=== PATIENT | female | born 1965 | race Caucasian/White ===

== ENCOUNTER → 2017-08-05 | Outpatient (CLI) | payer BC ==
--- NOTE | 2017-08-06 11:06 | MM ---
Reason for exam: screening (asymptomatic). Last mammogram was performed 3 years and 5 months ago. History: Family history of breast cancer in cousin at age 40. Took hormonal contraceptives for 2 months beginning at age 19. Physical Findings: A clinical breast exam by your physician is recommended on an annual basis and results should be correlated with mammographic findings. MG Screening Mammo w CAD Bilateral CC and MLO view(s) were taken. Prior study comparison: March 10, 2014, bilateral MG screening mammo w CAD. January 08, 2008, right breast diagnostic digital chayito. There are scattered fibroglandular densities. No significant changes when compared with prior studies. ASSESSMENT: Benign, BI-RAD 2 RECOMMENDATION: Routine screening mammogram of both breasts in 1 year.
== END | disposition home or self-care (01) ==
LOC: RADMAMWWP 14:15
PROVIDERS: ATTEND Family Medicine
DX: Z12.31 Encounter for screening mammogram for malignant neoplasm of breast (principal)

== ENCOUNTER → 2023-01-08 | Outpatient (CLI) | payer BC ==
--- NOTE | 2023-01-08 08:00 | CT ---
EXAMINATION TYPE: CT sinus wo con CT DLP: 570.8 mGycm, Automated exposure control for dose reduction was used. DATE OF EXAM: 01/08/2023 7:02 AM COMPARISON: 11/01/2010 CT brain. CLINICAL INDICATION:Female, 57 years old with history of J32.9 CHRONIC SINUSITIS, Chronic sinusitis TECHNIQUE: Multiple thin axial images were obtained through the paranasal sinuses without the use of IV contrast. Additional coronal and sagittal reformatted images were submitted for evaluation. Contrast used: none Oral contrast used: none FINDINGS: Frontal sinuses: Normally developed and aerated. Frontal Recess: Opacified on the right, patent left Modified Ann-Rumford Score: Right 1 = 1-25% Opacified, Left 0 = 0% Opacified Maxillary Sinuses: Normally developed and aerated. Modified Ann-Femi Score: Right 1 = 1-25% Opacified, Left 1 = 1-25% Opacified Maxillary Infundibula([facility]): Mucosal thickening with mild narrowing bilaterally, No Servando cells ident ified. Modified Ann-Femi Score: Right 1 = Partially obstructed, Left 1 = Partially obstructed Ethmoid sinuses: Normally developed and aerated. Ethmoidal notch: Protected and abutting the lateral lamina. Modified Ann-Femi Score: Anterior Right 1 = 1-25% Opacified, Left 1 = 1-25% Opacified Posterior Right 1 = 1-25% Opacified, Left 1 = 1-25% Opacified Sphenoid sinuses: Normally developed and aerated. There is sellar sphenoid sinus pneumatization witho ut evidence of dehiscence. No dehiscence of carotid canal. No evidence of optic nerve dehiscence wit hin the sphenoid sinus. No evidence of [place] cells. Sphenoethmoidal recesses: Clear. Modified Ann-Rumford Score: Right 1 = 1-25% Opacified, Left 1 = 1-25% Opacified. Nasal septum: There is mucosal thickening. Nasal Turbinates: There is mucosal thickening. Mastoid air cells & middle ears: The air cells are clear. The middle ears are grossly unremarkable. Modified Soft tissues & Brain: Partially seen without gross abnormality. Globes are intact. Other: Cribriform plate demonstrates symmetric Keros classification type 2 cribriform plate. No evidence of bony dehiscence of skull base. Lamina papyracea is intact without evidence of remote orbital fracture or orbital prolapse into the e thmoid sinus. IMPRESSION: 1. Minimal paranasal sinus disease. 2. The ostiomeatal units are partially narrowed, the frontonasal recess on the right is obstructed an d the sphenoethmoidal recesses are clear. 3. Opacification burden of on the Modified [place]-Rumford scoring system.
== END | disposition home or self-care (01) ==
LOC: RADCTMAIN 06:01
PROVIDERS: ATTEND Otolaryngology
DX: J32.8 Other chronic sinusitis (principal); J34.89 Other specified disorders of nose and nasal sinuses
CPT/HCPCS: 70486

== ENCOUNTER → 2024-02-07 | Outpatient (CLI) | payer BC ==
[2024-02-07 13:15] LABS: Basophils # (A) 0.04 X 10*3/uL (0.00-0.10); Basophils % (A) 0.9 %; Eosinophils # (A) 0.15 X 10*3/uL (0.04-0.35); Eosinophils % (A) 3.2 %; HCT 37.2 % (37.2-46.3); HGB 11.9 g/dL (12.0-15.0); Lymphocytes # (A) 2.49 X 10*3/uL (0.90-5.00); Lymphocytes % (A) 53.2 %; MCH 31.2 pg (27.0-32.0); MCV 97.4 FL (80.0-97.0); Mean Platelet Volume 9.6 FL (9.5-12.2); Monocytes # (A) 0.39 X 10*3/uL (0.20-1.00); Monocytes % (A) 8.3 %; NRBC Per 100 WBC 0 X 10*3/uL (0.00-0.01); Neutrophils % (A) 34.2 %; Platelet Count 379 X 10*3/uL (140-440); RBC 3.82 X 10*6/uL (4.10-5.20); RDW 13.8 % (11.5-14.5); WBC 4.68 X 10*3/uL (4.50-10.00)
[2024-02-07 13:47] LABS: ALT 14 U/L (8-44); AST 24 U/L (13-35); Albumin 4.3 g/dL (3.8-4.9); Albumin/Globulin Ratio 1.54 Ratio (1.60-3.17); Alkaline Phosphatase 61 U/L (41-126); BUN/Creat Ratio 27.33 Ratio (12.00-20.00); Blood Urea Nitrogen 16.4 mg/dL (9.0-27.0); Carbon Dioxide 26.5 mmol/L (21.6-31.8); Chloride 106 mmol/L (96-109); Chol/HDL Ratio 2.52 Ratio; Globulin 2.8 g/dL (1.6-3.3); Glucose 106 mg/dL (70-110); Potassium 4.5 mmol/L (3.5-5.5); Sodium 141 mmol/L (135-145); Total Bilirubin 0.8 mg/dL (0.3-1.2); Total Protein 7.1 g/dL (6.2-8.2); VLDL Calculation 8.68 mg/dL (5.00-40.00)
== END | disposition home or self-care (01) ==
LOC: LABWHC1 08:11
PROVIDERS: ATTEND Family Medicine
DX: Z00.00 Encounter for general adult medical examination without abnormal findings (principal); E03.9 Hypothyroidism, unspecified
CPT/HCPCS: 36415; 80053; 80061; 84439; 84443; 85025